=== PATIENT | male | born 1975 | race African-American/Black ===

== ENCOUNTER 2024-05-16 07:14 | Emergency (ER) | payer MEDICARE, OTHER ==
[2024-05-16] MEDS ORDERED: Acetaminophen/Codeine 30-300mg Tablet ONE (08:11)
[2024-05-16] MEDS ORDERED: Ketorolac Tromethamine 30 MG (1 mL) VIAL ONE (08:11)
== END 2024-05-16 08:34 | disposition home or self-care (01) ==
LOC: CSHERS 07:14
DX: B02.9 Zoster without complications (principal); R52 Pain, unspecified; Z55.6 Problems related to health literacy
CPT/HCPCS: 96372; 99283; J1885